=== PATIENT | female | born 1970 | race Caucasian/White ===

== ENCOUNTER 2019-11-03 07:25 | Day surgery (SDC) | payer BC, SELFPAY ==
[2019-11-03] MEDS ORDERED: SIMETHICONE 40 MG/0.6 ML ML ONE (08:24)
[2019-11-03] MEDS: MIDAZOLAM HCL 5 MG/5 ML VIAL ONE ×3 (08:40→08:44)
[2019-11-03] MEDS: fentaNYL CITRATE/PF 100 MCG/2 ML AMP ONE ×3 (08:40→08:44)
[2019-11-03 14:59] VITALS: BP_SYST 106
== END 2019-11-03 12:47 | disposition home or self-care (01) ==
LOC: SMU 07:25 → SDS 07:25
PROVIDERS: ATTEND Internal Medicine
DX: R13.10 Dysphagia, unspecified (principal); K22.2 Esophageal obstruction; K50.813 Crohn's disease of both small and large intestine with fistula; D64.9 Anemia, unspecified; R19.7 Diarrhea, unspecified; Z11.59 Encounter for screening for other viral diseases
CPT/HCPCS: 36415; 43239; 87081; 88305; 88312; 88313; 99152; G0378; J2250; J3010; U0003